=== PATIENT | female | born 1935 | race Caucasian/White ===

== ENCOUNTER → 2017-01-02 | Outpatient (REF) | payer OTHER | LOC: M LAB REF 12:14 | PROVIDERS: ATTEND Nurse Practitioner Family | DX: R35.0 Frequency of micturition (principal) ==

== ENCOUNTER → 2017-02-18 | Outpatient (CLI) | payer MEDICARE ==
--- NOTE | 2017-02-18 15:32 | REPMRS ---
Patient History The patient states she had a clinical breast exam in 02/2017. Patient is postmenopausal. Family history of colorectal cancer in 2 paternal aunts at age 50 or over, prostate cancer in brother at age 50 or over, breast cancer in paternal uncle at age 50 or over, and colorectal cancer in paternal uncle at age 50 or over. Taking estrogen for 5 years 6 months. Digital Woman Screen Mammo: February 18, 2017 - Exam #: [id number] Bilateral CC and MLO view(s) were taken. Technologist: Karen Frederick, Technologist Prior study comparison: December 27, 2015, digital woman screen mammo performed at [facility]. August 22, 2014, digital woman screen mammo performed at [facility]. FINDINGS: There are scattered fibroglandular densities. There has been no change in the appearance of the mammogram from the prior studies. There is a mild amount of residual fibroglandular tissue which is fairly symmetric. There is no interval development of dominant mass, architectural distortion, or clustered microcalcification suggestive of malignancy. ASSESSMENT: BI-RADS/ACR category 1 mammogram. Negative. Recommendation Routine screening mammogram in 1 year (for women over age 40). This mammogram was interpreted with the aid of an FDA-approved computer-aided dectection system. Electronically Signed By: Keaton Dee MD 02/18/17 [id number]
== END ==
LOC: M WHC 14:40
PROVIDERS: ATTEND Nurse Practitioner Family
DX: Z12.31 Encounter for screening mammogram for malignant neoplasm of breast (principal); Z78.0 Asymptomatic menopausal state; Z92.23 Personal history of estrogen therapy
CPT/HCPCS: G0202; G0463

== ENCOUNTER → 2017-05-04 | Outpatient (REF) | payer MEDICARE | LOC: M SFHCWAGY 17:07 | PROVIDERS: ATTEND Nurse Practitioner Women's Health | DX: N89.8 Other specified noninflammatory disorders of vagina (principal) | CPT/HCPCS: 87070; 87077; 87186; 87210; G0463 ==

== ENCOUNTER 2017-07-08 17:47 | Emergency (ER) | payer MEDICARE ==
[~2017-07-08] VITALS: Ht 147.3 cm; Wt 56.8 kg
[2017-07-08] MEDS ORDERED: HYDR25TAB (18:18)
[2017-07-08] MEDS ORDERED: MYRB50TA (18:18)
[2017-07-08] MEDS ORDERED: POTA20TA (18:18)
[2017-07-08] MEDS ORDERED: IBUP-1114 PO (18:18)
[2017-07-08] MEDS ORDERED: LEVO88TA3 (18:18)
[2017-07-08] MEDS ORDERED: ENAL10TA2 (18:18)
[2017-07-08] MEDS ORDERED: PRAV20TA2 (18:18)
[2017-07-08 19:55] LABS: MEAN CORPUSCULAR HEMOGLOBIN 29.5 pg (27.0-33.0); MEAN CORPUSCULAR HGB CONC 32.1 g/dl (32.0-36.5); MEAN CORPUSCULAR VOLUME 92.2 fl (80.0-96.0); PLATELET COUNT, AUTOMATED 269 10^3/uL (150-450); RED CELL DISTRIBUTION WIDTH 12.6 % (11.5-14.5); WHITE BLOOD COUNT 6.9 10^3/uL (4.0-10.0)
[2017-07-08 20:21] LABS: ANION GAP 7 MEQ/L (8-16); BLOOD UREA NITROGEN 32 MG/DL (7-18); CARBON DIOXIDE LEVEL 27 MEQ/L (21-32); CHLORIDE LEVEL 109 MEQ/L (98-107); CREATININE FOR GFR 0.72 MG/DL (0.55-1.02); GLOMERULAR FILTRATION RATE > 60.0 (>32); GLUCOSE, FASTING 83 MG/DL (83-110); POTASSIUM SERUM 3.9 MEQ/L (3.5-5.1); SODIUM LEVEL 143 MEQ/L (136-145)
--- NOTE | 2017-07-08 20:48 | ECGEPIP ---
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
[2017-07-08] MEDS ORDERED: VASO20TA11 PO (21:04)
[2017-07-08] MEDS ORDERED: VASO10TA8 PO (21:11)
[2017-07-08 21:31] VITALS: BP 138/73
== END 2017-07-08 21:37 | disposition home or self-care (01) ==
LOC: M ED 17:47
DX: I10 Essential (primary) hypertension (principal); T44.5X5A Adverse effect of predominantly beta-adrenoreceptor agonists, initial encounter; Z79.899 Other long term (current) drug therapy; Z88.8 Allergy status to other drugs, medicaments and biological substances; Z88.2 Allergy status to sulfonamides

== ENCOUNTER → 2018-01-15 | Outpatient (REF) | payer MEDICARE | LOC: M SFHCWAGY 12:02 | DX: R30.0 Dysuria (principal) | CPT/HCPCS: 87186 ==

== ENCOUNTER → 2018-03-09 | Outpatient (CLI) | payer MEDICARE | LOC: M WHC 10:21 | DX: Z01.419 Encounter for gynecological examination (general) (routine) without abnormal findings (principal); Z12.31 Encounter for screening mammogram for malignant neoplasm of breast (principal); Z78.0 Asymptomatic menopausal state; Z80.0 Family history of malignant neoplasm of digestive organs; Z12.12 Encounter for screening for malignant neoplasm of rectum; Z98.890 Other specified postprocedural states | CPT/HCPCS: 77067 ==

== ENCOUNTER → 2018-07-15 | Outpatient (REF) | payer MEDICARE | LOC: M LAB REF 11:51 | DX: N39.0 Urinary tract infection, site not specified (principal) | CPT/HCPCS: 87186 ==

== ENCOUNTER → 2018-09-28 | Outpatient (REF) | payer MEDICARE ==
[~2018-09-28] MED LIST: ENAL10TA2; HYDR25TAB; IBUP-1114 PO; KLOR20TA42; LEVO88TA3; MYRB50TA; PRAV20TA2; VASO10TA8 PO; VASO20TA11 PO
== END ==
LOC: M LAB REF 17:27
PROVIDERS: ATTEND Nurse Practitioner Adult Health
DX: R10.30 Lower abdominal pain, unspecified (principal)

== ENCOUNTER → 2018-11-19 | Outpatient (REF) | payer MEDICARE ==
[2018-11-19 17:03] LABS: APPEARANCE, URINE CLOUDY (CLEAR); BACTERIA, URINE AUTO 1+ (NEGATIVE); BILIRUBIN, URINE AUTO NEGATIVE (NEGATIVE); BLOOD, URINE BLOOD 2+ (NEGATIVE); COLOR, URINE YELLOW (YELLOW); GLUCOSE, URINE (UA) AUTO NEGATIVE (NEGATIVE); KETONE, URINE AUTO NEGATIVE (NEGATIVE); LEUKOCYTE ESTERASE, URINE AUTO 3+ (NEGATIVE); NITRITE, URINE AUTO NEGATIVE (NEGATIVE); PROTEIN, URINE AUTO NEGATIVE (NEGATIVE); RBC, URINE AUTO 10 /HPF (0-3); SPECIFIC GRAVITY URINE AUTO 1.017 (1.002-1.035); SQUAMOUS EPITHELIAL CELL UR AU 0 /HPF (0-6); UROBILINOGEN, URINE AUTO 0.2 mg/dL (0.0-2.0); WBC, URINE AUTO TNTC /HPF (0-3)
== END ==
LOC: M LAB REF 16:42
PROVIDERS: ATTEND Physician Assistant
DX: N39.0 Urinary tract infection, site not specified (principal)

== ENCOUNTER → 2019-01-31 | Outpatient (REF) | payer MEDICARE ==
[2019-01-31 17:41] LABS: APPEARANCE, URINE HAZY (CLEAR); BACTERIA, URINE AUTO 1+ (NEGATIVE); BILIRUBIN, URINE AUTO NEGATIVE (NEGATIVE); BLOOD, URINE BLOOD 2+ (NEGATIVE); COLOR, URINE YELLOW (YELLOW); GLUCOSE, URINE (UA) AUTO NEGATIVE (NEGATIVE); KETONE, URINE AUTO NEGATIVE (NEGATIVE); LEUKOCYTE ESTERASE, URINE AUTO 3+ (NEGATIVE); NITRITE, URINE AUTO POSITIVE (NEGATIVE); PROTEIN, URINE AUTO NEGATIVE (NEGATIVE); RBC, URINE AUTO 10 /HPF (0-3); SPECIFIC GRAVITY URINE AUTO 1.012 (1.002-1.035); SQUAMOUS EPITHELIAL CELL UR AU 0 /HPF (0-6); UROBILINOGEN, URINE AUTO 0.2 mg/dL (0.0-2.0); WBC, URINE AUTO 30 /HPF (0-3)
== END ==
LOC: M LAB REF 16:08
PROVIDERS: ATTEND Obstetrics & Gynecology
DX: N30.90 Cystitis, unspecified without hematuria (principal)

== ENCOUNTER 2019-02-22 21:31 | Emergency (ER) | payer MEDICARE ==
[~2019-02-22] VITALS: Ht 147.3 cm; Wt 120.0 kg
[2019-02-22] MEDS ORDERED: NS 1,000 ML IV SCH (21:48)
[2019-02-22 22:30] LABS: BASO % 0.4 % (0.0-1.0); EOS # 0.1 10^3/uL (0.0-0.50); EOS % 1.5 % (0.0-3.0); HEMATOCRIT 37.2 % (36.0-47.0); LYMPH % 13.7 % (24.0-44.0); MEAN CORPUSCULAR HEMOGLOBIN 30.4 pg (27.0-33.0); MEAN CORPUSCULAR HGB CONC 32.3 g/dl (32.0-36.5); MEAN CORPUSCULAR VOLUME 94.2 fl (80.0-96.0); MONO # 0.5 10^3/uL (0.0-0.8); MONO % 6.8 % (0.0-5.0); NEUTROPHILS # 5.7 10^3/uL (1.8-7.7); NEUTROPHILS % 77.1 % (36.0-66.0); PLATELET COUNT, AUTOMATED 227 10^3/uL (150-450); RED BLOOD COUNT 3.95 10^6/uL (4.00-5.40); WHITE BLOOD COUNT 7.4 10^3/uL (4.0-10.0)
[2019-02-22 22:41] LABS: INR 1.13; PROTHROMBIN TIME 14.2 SECONDS (11.8-14.0)
[2019-02-22 22:42] LABS: PARTIAL THROMBOPLASTIN TIME 30.6 SECONDS (25.0-38.4)
[2019-02-22 22:50] LABS: ALBUMIN 3.5 GM/DL (3.2-5.2); BILIRUBIN,DIRECT 0.1 MG/DL (0.0-0.2); BILIRUBIN,TOTAL 0.4 MG/DL (0.2-1.0); TOTAL PROTEIN 6.8 GM/DL (6.4-8.2)
[2019-02-22] MEDS ORDERED: LIDOCAINE 2% 5ML JELLY UROJET TOP ONE (23:15)
[2019-02-22] MEDS ORDERED: LevoFLOXacin 500 MG TABLET PO ONE (23:45)
[2019-02-23] MEDS ORDERED: ISOVUE-370 76% 100ML VIAL (Q9967) As Ordered ONE (00:41)
--- NOTE | 2019-02-23 03:26 | REPVR ---
EXAM: CT Abdomen and Pelvis With Contrast EXAM DATE/TIME: 02/23/2019 12:51 AM CLINICAL HISTORY: 83 years old, female; Abdominal pain; Localized; Right lower quadrant (rlq) TECHNIQUE: Imaging protocol: Axial computed tomography images of the abdomen and pelvis with intravenous contrast. Coronal and sagittal reformatted images were created and reviewed. Radiation optimization: All CT scans at this facility use at least one of these dose optimization techniques: automated exposure control; mA and/or kV adjustment per patient size (includes targeted exams where dose is matched to clinical indication); or iterative reconstruction. Contrast material: ISOVUE 370; Contrast volume: 100 ml; Contrast route: IV; COMPARISON: No relevant prior studies available. FINDINGS: Lungs: There is mild dependent atelectasis in both lower lobes. Heart: No cardiomegaly. No pericardial effusion. There are coronary artery calcifications. Mediastinum: There is a small sliding hiatal hernia. Diaphragm: There is mild eventration of the right hemidiaphragm. Liver: There are 2.3 cm and 3.2 cm lesions that demonstrate peripheral nodular enhancement in the posterior superior segment 7 of the right hepatic lobe, which are most compatible with hemangiomas. There is a 1 cm cyst in the superior lateral segment 2 of the left hepatic lobe. There is a 3.3 cm cyst in the anterior superior segment 8 of the right hepatic lobe. The contour of the liver is smooth. The liver is enlarged and measures 17.5 cm in craniocaudal dimension at the level of the right midclavicular line. Gallbladder and bile ducts: No calcified gallstones are seen. No gallbladder wall thickening, pericholecystic fluid, or pericholecystic inflammatory changes are identified. No dilation of the intrahepatic or common bile duct is noted. Pancreas: The main pancreatic duct is dilated and measures up to 5 mm in diameter. However, no pancreatic mass, lesion, or pseudocyst is noted. There no pancreatic calcifications. No inflammatory fat stranding is noted around the pancreas. Spleen: Normal. No splenomegaly. Adrenals: Normal. No mass. Kidneys and ureters: The kidneys are normal in appearance. No renal lesion is identified. No calculi are seen in the kidneys or ureters. There is no hydronephrosis or hydroureter. There are no wedge-shaped areas of low attenuation in the kidneys to suggest pyelonephritis. There is no renal abscess or perinephric fluid collection. Stomach and bowel: There is colonic diverticulosis without evidence for diverticulitis. There is no evidence for a bowel obstruction, colitis, pneumatosis intestinalis, intussusception, volvulus, or perforated viscus. Appendix: The appendix is not identified and may have been removed. No dilated blind ending tubular structure, inflammatory fat stranding, or fluid is noted in the expected location of the appendix. Intraperitoneal space: Unremarkable. No free air. No fluid collection. Vasculature: There are mild to moderate atherosclerotic calcifications. The abdominal aorta is patent, normal in caliber, and there is no dissection. The iliac arteries, common femoral arteries, renal arteries, celiac artery, superior mesenteric artery, and inferior mesenteric artery are patent. The renal veins, hepatic veins, portal veins, splenic vein, superior mesenteric vein, and inferior mesenteric vein are patent. Lymph nodes: Normal. No enlarged lymph nodes. Bladder: No calculi are noted in the bladder. There is no bladder wall thickening or mass. There is a diverticulum arising from the right posterolateral aspect of the urinary bladder. Reproductive: There has been a hysterectomy. No adnexal mass is noted. Bones/joints: The imaged bony structures are intact. There is no suspicious osteolytic or osteoblastic lesion. Incidental note is made of a small bone island in the right acetabulum. There are degenerative changes in the lower thoracic spine and lumbar spine. There is an S-shaped scoliosis of the thoracolumbar spine. There are degenerative changes of both hip joints and the pubic symphysis. Soft tissues: There is a large fat-containing periumbilical hernia, and the hernia sac measures approximately 6.4 cm in transverse dimension and defect in the anterior abdominal wall measures approximately 2.6 cm in transverse dimension. IMPRESSION: 1. No acute findings in the abdomen or pelvis. No evidence for appendicitis. 2. Large fat-containing periumbilical hernia. 3. Colonic diverticulosis without evidence for diverticulitis. 4. Hepatomegaly. Electronically signed by: Don Banerjee On 02/23/2019 03:26:11 AM
[2019-02-23] MEDS ORDERED: CIPR-249 PO (03:42)
[2019-02-23 04:00] VITALS: BP 147/64
--- NOTE | 2019-02-23 06:44 | REP ---
Portable chest, 10:15 p.m., single AP view with the patient upright: Comparison is 03/23/2014. Cardiac size appears enlarged, however, some of this could be artifactual from portable positioning. Lung dorado are clear. The almas, mediastinum, and skeletal structures are unremarkable. There is scoliosis in the lumbar spine convex right, unchanged. Impression: Possible cardiomegaly versus artifact from portable positioning. Otherwise, negative portable chest. Electronically Signed by Keaton Martinez MD 02/23/2019 06:35 A
--- NOTE | 2019-02-23 09:10 | ECGEPIP ---
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
== END 2019-02-23 04:01 | disposition home or self-care (01) ==
LOC: M ED 21:31
DX: N39.0 Urinary tract infection, site not specified (principal); R10.31 Right lower quadrant pain; I10 Essential (primary) hypertension; E78.9 Disorder of lipoprotein metabolism, unspecified; E07.9 Disorder of thyroid, unspecified; Z87.440 Personal history of urinary (tract) infections; Z88.2 Allergy status to sulfonamides; Z88.5 Allergy status to narcotic agent; Z88.8 Allergy status to other drugs, medicaments and biological substances; Z79.899 Other long term (current) drug therapy
CPT/HCPCS: 36415; 71045; 74177; 80047; 80076; 81001; 83605; 83690; 85025; 85610; 85730; 87040; 87088; 87186; 93005; 93041; 96360; 96361; 99285; Q9967

== ENCOUNTER → 2019-03-07 | Outpatient (REF) | payer MEDICARE ==
[~2019-03-07] MED LIST changes: +CIPR-249 PO
[2019-03-07 17:27] LABS: APPEARANCE, URINE CLEAR (CLEAR); BACTERIA, URINE AUTO 1+ (NEGATIVE); BILIRUBIN, URINE AUTO NEGATIVE (NEGATIVE); BLOOD, URINE BLOOD NEGATIVE (NEGATIVE); COLOR, URINE STRAW (YELLOW); GLUCOSE, URINE (UA) AUTO NEGATIVE (NEGATIVE); KETONE, URINE AUTO NEGATIVE (NEGATIVE); LEUKOCYTE ESTERASE, URINE AUTO 1+ (NEGATIVE); NITRITE, URINE AUTO NEGATIVE (NEGATIVE); PROTEIN, URINE AUTO NEGATIVE (NEGATIVE); RBC, URINE AUTO 1 /HPF (0-3); SQUAMOUS EPITHELIAL CELL UR AU 0 /HPF (0-6); UROBILINOGEN, URINE AUTO 0.2 mg/dL (0.0-2.0); WBC, URINE AUTO 4 /HPF (0-3)
== END ==
LOC: M SMT 16:47
PROVIDERS: ATTEND Nurse Practitioner Women's Health
DX: N39.0 Urinary tract infection, site not specified (principal)

== ENCOUNTER → 2019-04-04 | Outpatient (REF) | payer MEDICARE ==
[2019-04-04 17:54] LABS: BACTERIA, URINE AUTO NEGATIVE (NEGATIVE); RBC, URINE AUTO 1 /HPF (0-3); SQUAMOUS EPITHELIAL CELL UR AU 0 /HPF (0-6); WBC, URINE AUTO 35 /HPF (0-3)
== END ==
LOC: M SMT 16:52
PROVIDERS: ATTEND Specialist
DX: N39.0 Urinary tract infection, site not specified (principal)

== ENCOUNTER → 2019-04-21 | Outpatient (REF) | payer MEDICARE | LOC: M LAB REF 16:39 | PROVIDERS: ATTEND Nurse Practitioner Adult Health | DX: R19.7 Diarrhea, unspecified (principal) ==

== ENCOUNTER → 2019-05-05 | Outpatient (REF) | payer MEDICARE ==
[2019-05-05 14:06] LABS: BACTERIA, URINE AUTO NEGATIVE (NEGATIVE); RBC, URINE AUTO 5 /HPF (0-3); SQUAMOUS EPITHELIAL CELL UR AU 0 /HPF (0-6); TRANSITIONAL EPITHELIAL AUTO <1 /HPF; WBC, URINE AUTO 40 /HPF (0-3)
== END ==
LOC: M SMT 12:43
PROVIDERS: ATTEND Specialist
DX: N39.0 Urinary tract infection, site not specified (principal)

== ENCOUNTER → 2019-08-05 | Outpatient (REF) | payer MEDICARE ==
[2019-08-05 18:29] LABS: APPEARANCE, URINE CLEAR (CLEAR); BACTERIA, URINE AUTO NEGATIVE (NEGATIVE); BILIRUBIN, URINE AUTO NEGATIVE (NEGATIVE); BLOOD, URINE BLOOD 2+ (NEGATIVE); COLOR, URINE YELLOW (YELLOW); GLUCOSE, URINE (UA) AUTO NEGATIVE (NEGATIVE); KETONE, URINE AUTO NEGATIVE (NEGATIVE); LEUKOCYTE ESTERASE, URINE AUTO 3+ (NEGATIVE); MUCUS, URINE SMALL (NEGATIVE); NITRITE, URINE AUTO POSITIVE (NEGATIVE); PROTEIN, URINE AUTO NEGATIVE (NEGATIVE); RBC, URINE AUTO 5 /HPF (0-3); SPECIFIC GRAVITY URINE AUTO 1.016 (1.002-1.035); SQUAMOUS EPITHELIAL CELL UR AU 0 /HPF (0-6); UROBILINOGEN, URINE AUTO 0.2 mg/dL (0.0-2.0); WBC, URINE AUTO 173 /HPF (0-3)
== END ==
LOC: M SMT 17:27
PROVIDERS: ATTEND Specialist
DX: N39.0 Urinary tract infection, site not specified (principal)

== ENCOUNTER → 2019-11-29 | Outpatient (REF) | payer MEDICARE ==
[2019-12-02 14:06] LABS: B. HENSELAE IgG (CAT SCRATCH) Negative titer (Neg:<1:320); B. HENSELAE IgM (CAT SCRATCH) Negative titer (Neg:<1:100); B. QUINTANA IgG (CAT SCRATCH) Negative titer (Neg:<1:320); B. QUINTANA IgM (CAT SCRATCH) Negative titer (Neg:<1:100)
== END ==
LOC: M LAB REF 17:24
PROVIDERS: ATTEND Nurse Practitioner Family
DX: R50.9 Fever, unspecified (principal); W55.03XA Scratched by cat, initial encounter; Y92.89 Other specified places as the place of occurrence of the external cause; Y93.89 Activity, other specified; Y99.8 Other external cause status

== ENCOUNTER → 2019-12-12 | Outpatient (REF) | payer MEDICARE ==
[~2019-12-12] MED LIST changes: +ATIV1TAB10 PO; +LISI-538; +METH-855
[2019-12-12 17:47] LABS: BACTERIA, URINE AUTO 1+ (NEGATIVE); RBC, URINE AUTO 18 /HPF (0-3); SQUAMOUS EPITHELIAL CELL UR AU 2 /HPF (0-6); WBC, URINE AUTO TNTC /HPF (0-3)
== END ==
LOC: M SMT 16:37
PROVIDERS: ATTEND Nurse Practitioner Family
DX: N39.0 Urinary tract infection, site not specified (principal)

== ENCOUNTER 2019-12-19 18:28 | Emergency (ER) | payer MEDICARE ==
[~2019-12-19] VITALS: Ht 149.9 cm; Wt 52.3 kg
[~2019-12-19 18:28] MED LIST changes: -ATIV1TAB10 PO; -HYDR25TAB; +HYDR25TAB PO; -KLOR20TA42; +KLOR20TA42 PO; -LEVO88TA3; +LEVO88TA3 PO; -LISI-538; -METH-855; -PRAV20TA2; +PRAV20TA2 PO
[2019-12-19] MEDS ORDERED: LISI-538 PO (18:40)
[2019-12-19] MEDS ORDERED: METH-855 PO (18:47)
[2019-12-19 19:07] LABS: BASO % 0.4 % (0.0-1.0); EOS # 0.2 10^3/uL (0.0-0.5); EOS % 2.1 % (0.0-3.0); HEMOGLOBIN 13.3 g/dl (12.0-15.5); LYMPH # 2.3 10^3/uL (1.5-5.0); LYMPH % 31.3 % (24.0-44.0); MEAN CORPUSCULAR HGB CONC 32.4 g/dl (32.0-36.5); MEAN CORPUSCULAR VOLUME 92.3 fl (80.0-96.0); MONO # 0.6 10^3/uL (0.0-0.8); MONO % 7.6 % (0.0-5.0); NEUTROPHILS # 4.2 10^3/uL (1.5-8.5); NEUTROPHILS % 58.2 % (36.0-66.0); PLATELET COUNT, AUTOMATED 272 10^3/uL (150-450); RED BLOOD COUNT 4.44 10^6/uL (4.00-5.40); WHITE BLOOD COUNT 7.3 10^3/uL (4.0-10.0)
--- NOTE | 2019-12-19 19:15 | REPVR ---
PROCEDURE INFORMATION: Exam: CT Head Without Contrast Exam date and time: 12/19/2019 7:00 PM Age: 84 years old Clinical indication: Pain; Headache; Additional info: CVA - nursing interventions must not delay CT TECHNIQUE: Imaging protocol: Computed tomography of the head without contrast. Radiation optimization: All CT scans at this facility use at least one of these dose optimization techniques: automated exposure control; mA and/or kV adjustment per patient size (includes targeted exams where dose is matched to clinical indication); or iterative reconstruction. Other technique: STROKE PROTOCOL was implemented. COMPARISON: No relevant prior studies available. FINDINGS: Brain: Decreased attenuation of the supratentorial white matter is likely secondary to chronic microvascular ischemia. No acute intracranial hemorrhage. Ventricles: Ventricular and subarachnoid spaces are age appropriate. Bones/joints: Unremarkable. No acute fracture. Sinuses: Mild paranasal sinus disease. Mastoid air cells: Visualized mastoid air cells are well aerated. Soft tissues: Unremarkable. Vasculature: Intracranial vascular calcification. IMPRESSION: No acute intracranial abnormality. ASSESSMENT: ASPECTS ([place] Stroke Program Early CT Score) is 10. Electronically signed by: Boubacar Alvarez On 12/19/2019 19:15:32 PM
[2019-12-19 19:20] LABS: INR 1.12; PROTHROMBIN TIME 14.1 SECONDS (11.8-14.0)
[2019-12-19 19:21] LABS: PARTIAL THROMBOPLASTIN TIME 31.9 SECONDS (25.0-38.4)
[2019-12-19] MEDS ORDERED: LORazepam 0.5 MG TAB PO STA (19:29)
[2019-12-19] MEDS ORDERED: ACETAMINOPHEN TAB 650MG DOSE (2X325MG) PO ONE (19:30)
[2019-12-19 19:41] LABS: BLOOD UREA NITROGEN 26 MG/DL (7-18); CALCIUM LEVEL 10.1 MG/DL (8.8-10.2); CARBON DIOXIDE LEVEL 28 MEQ/L (21-32); CHLORIDE LEVEL 105 MEQ/L (98-107); CK-MB VALUE MASS 3.2 NG/ML (<3.6); CPK CREATINE PHOSPHOKINASE 115 U/L (26-192); CREATININE FOR GFR 0.79 MG/DL (0.55-1.30); GLOMERULAR FILTRATION RATE > 60.0 (>32); GLUCOSE, FASTING 106 MG/DL (70-100); MB/CK RELATIVE INDEX 2.78 (< OR =4); POTASSIUM SERUM 4.2 MEQ/L (3.5-5.1); SODIUM LEVEL 138 MEQ/L (136-145); THYROID STIMULATING HORMONE 0.717 uIU/ML (0.358-3.740); TROPONIN I < 0.02 NG/ML (< 0.10)
[2019-12-19] MEDS ORDERED: ATIV1TAB10 PO (20:25)
[2019-12-19 20:33] VITALS: BP 163/81
--- NOTE | 2019-12-20 08:22 | REP ---
Sitting AP chest x-ray: Single view. History: CVA. Comparison chest x-ray: February 22, 2019. Findings: The lungs are symmetrically aerated and free of infiltrate. Pleural angles are sharp. Cardiomediastinal silhouette unchanged. The aorta is calcific and tortuous. Pulmonary vasculature is not increased. Monitoring electrodes are seen. There are degenerative changes in the left shoulder and to some degree in the thoracic spine. Impression: No active disease. Electronically Signed by Carmelo Padilla MD 12/20/2019 08:13 A
== END 2019-12-19 21:03 | disposition home or self-care (01) ==
LOC: M ED 18:28 → EDBD 18:28 → M ED 21:03
DX: F43.0 Acute stress reaction (principal); I10 Essential (primary) hypertension; E03.9 Hypothyroidism, unspecified; Z88.2 Allergy status to sulfonamides; Z88.8 Allergy status to other drugs, medicaments and biological substances; Z79.899 Other long term (current) drug therapy

== ENCOUNTER 2019-12-28 18:21 | Observation (INO) | payer MEDICARE ==
[~2019-12-28] VITALS: Ht 147.3 cm; Wt 50.9 kg
[~2019-12-28 18:21] MED LIST changes: +ATIV1TAB10 PO; +LISI-538 PO; +METH-855 PO
[2019-12-28] MEDS ORDERED: NS 500 ML IV ONE (18:45)
[2019-12-28 19:00] LABS: BASO % 0.4 % (0.0-1.0); EOS # 0.1 10^3/uL (0.0-0.5); EOS % 1.5 % (0.0-3.0); HEMATOCRIT 35.8 % (36.0-47.0); HEMOGLOBIN 12.1 g/dl (12.0-15.5); LYMPH # 2.3 10^3/uL (1.5-5.0); LYMPH % 33.6 % (24.0-44.0); MEAN CORPUSCULAR HGB CONC 33.8 g/dl (32.0-36.5); MEAN CORPUSCULAR VOLUME 88.6 fl (80.0-96.0); MONO # 0.6 10^3/uL (0.0-0.8); MONO % 9.5 % (0.0-5.0); NEUTROPHILS # 3.7 10^3/uL (1.5-8.5); NEUTROPHILS % 54.6 % (36.0-66.0); PLATELET COUNT, AUTOMATED 263 10^3/uL (150-450); RED BLOOD COUNT 4.04 10^6/uL (4.00-5.40); WHITE BLOOD COUNT 6.7 10^3/uL (4.0-10.0)
--- NOTE | 2019-12-28 19:03 | REPVR ---
PROCEDURE INFORMATION: Exam: CT Head Without Contrast Exam date and time: 12/28/2019 6:54 PM Age: 84 years old Clinical indication: Dizziness; Additional info: CVA - nursing interventions must not delay CT TECHNIQUE: Imaging protocol: Computed tomography of the head without contrast. Radiation optimization: All CT scans at this facility use at least one of these dose optimization techniques: automated exposure control; mA and/or kV adjustment per patient size (includes targeted exams where dose is matched to clinical indication); or iterative reconstruction. COMPARISON: CT Head without contrast 12/19/2019 6:57 PM FINDINGS: Brain: Normal. No hemorrhage. Unremarkable white matter. No mass effect. Ventricles: Normal. No ventriculomegaly. Bones/joints: Unremarkable. No acute fracture. Sinuses: Visualized sinuses are unremarkable. No fluid levels. Mastoid air cells: Visualized mastoid air cells are well aerated. Orbits: Bilateral cataract surgery. Soft tissues: Unremarkable. IMPRESSION: No acute intracranial abnormality. Electronically signed by: Osbaldo Mendoza On 12/28/2019 19:03:26 PM
[2019-12-28 19:16] LABS: INR 1.1; PROTHROMBIN TIME 13.9 SECONDS (11.8-14.0)
[2019-12-28 19:17] LABS: PARTIAL THROMBOPLASTIN TIME 30.8 SECONDS (25.0-38.4)
[2019-12-28 19:27] LABS: BLOOD UREA NITROGEN 16 MG/DL (7-18); CALCIUM LEVEL 9.3 MG/DL (8.8-10.2); CARBON DIOXIDE LEVEL 26 MEQ/L (21-32); CHLORIDE LEVEL 98 MEQ/L (98-107); CK-MB VALUE MASS 2.7 NG/ML (<3.6); CPK CREATINE PHOSPHOKINASE 100 U/L (26-192); CREATININE FOR GFR 0.66 MG/DL (0.55-1.30); GLOMERULAR FILTRATION RATE > 60.0 (>32); GLUCOSE, FASTING 89 MG/DL (70-100); SODIUM LEVEL 132 MEQ/L (136-145); TROPONIN I < 0.02 NG/ML (< 0.10)
[2019-12-28] MEDS ORDERED: cefTRIAXone SOD 1 GM in D5W MINI-BAG PLUS 50 ML IV ONE (20:45)
--- NOTE | 2019-12-28 21:18 | ECGEPIP ---
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
--- NOTE | 2019-12-28 21:43 | HPEPDOC ---
[facility] Medical History & Physical Date of Admission December 28, 2019 Date of Service: December 28, 2019 Primary Care Physician: Jr Car Collins Attending Physician: Esme Samuel MD History and Physical CHIEF COMPLAINT: Weakness HISTORY OF PRESENT ILLNESS: Patient is an 84-year-old female with PMH of HTN, DJD, stress incontinence, hypothyroidism, hypokalemia, HLD, recurrent UTI, hx of MRSA who presented to [facility] with chief complaint of increased weakness. According to the patient, she has been increasingly stressed, developing anxiety and depression over the past several months with the current situation from Covid 19 and caring for her terminally ill brother. She is also had other family stressors. She presented on 12/18/2021 are emergency room and diagnosed with a stress reaction at that time. She was prescribed Ativan, total of 6 pills to take PRN. She had a lso been feeling hopeless, crying often and "depressed" and was started on zoloft 12/21/2019 by her primary care provider. On 12/25/2019 the patient states after having taken Zoloft and Ativan together that she experienced increased weakness, memory loss, increased lightheadedness, dizzy. She called her doctor who recommended stopping the Ativan at that time and cutting her Zoloft dose half. Over the next 2 days the patient felt okay but today at a proximally 1013 the morning her symptoms came back at rest. She became increasingly panicked and felt like she was having "a stroke". Her had had a stroke and this created more anxiety and panic attack. The patient denied chest pain, shortness of breath, nausea, vomiting, diarrhea, appetite changes, dysuria. She admitted to also having a "heavy feeling in my legs". She drinks plenty of water during the day due to history of recurrent urinary tract infections, at least 1500 mL. Due to her abnormal feelings and symptoms this morning the patient came to the emergency room for further evaluation. In the emergency room vital signs showed BP 155-186/77-86 with other VS stable. Patient was awake, alert oriented- improved from earlier presentation. CT head neg. UA+ but patient was asymptomatic. Sodium slightly low at 132. She was given IVFS, ceftriaxone in ER. WBC wnl. Patient was admitted for AMS likely 2/2 to polypharmacy and UTI, generalized weakness. REVIEW OF SYSTEMS: CONSTITUTIONAL: Denies unexplained weight gain or weight loss, loss of appetite, fever, night sweats EYES: Denies eye drainage, eye pain, visual changes, dry/irritated eye EARS, NOSE, MOUTH, THROAT: Denies difficulty hearing, ringing in ears, mouth sores, loose teeth, sore throat, facial numbness or pain NECK: Denies swollen glands CARDIOVASCULAR: Denies irregular heartbeat, racing heart, chest pains, swelling of feet or legs, pain in legs with walking RESPIRATORY: Denies shortness of breath, night sweats, wheezing, sputum production, oxygen at home, coughing up blood, cough lasting > 1 month GASTROINTESTINAL: Denies abdominal pain, constipation, bloody stool, diarrhea, heartburn, nausea, vomiting GENITOURINARY: Denies painful urination, bloody urine, impotence MUSCULOSKELETAL: Denies muscle pain, leg swelling INTEGUMENTARY: Denies rash, itching, new skin lesion, change in existing skin lesion, hair loss or increase, breast changes. NEUROLOGICAL: Denies headaches, numbness or tingling PSYCHIATRIC: Denies recurrent bad thoughts, mood swings, hallucinations PAST MEDICAL HISTORY: 1. HTN 2. DJD 3. Stress incontinence 4. Hypothyroidism 5. Hypokalemia 6. HLD 7. Recurrent UTI, hx of MRSA 8. Osteoporosis 9. Chronic hip pain PAST SURGICAL HISTORY: 1. Colonoscopy x 3 2. Tonsillectomy 3. Adenectomy 4. Total hysterectomy 5. Appendectomy 6. D&C x3 7. Bladder repair FAMILY HISTORY: Father: HTN, stroke, bladder cancer. at 68 y/o Mother: HTN, prediabetes, atrial fibrillation. at 78 y/o Siblings: sister- kidney cancer. Alive. Brother's siblings- bladder cancer SOCIAL HISTORY: Remote hx of smoking for 3 years, 1 1/2 PPD, quit 56 years ago. Drinks alcohol socially, denies drug. She currently lives with her brother, she is her primary caregiver. PCP- Christi Shannon in [place]. She is a full code ALLERGIES: Please see below. HOME MEDICATIONS: Please see below. PHYSICAL EXAMINATION: CONSTITUTIONAL: No acute distress, resting comfortably, AAO x 3 EYES: PERRLA, EOM intact, corrective lenses in place HENT, MOUTH: Normocephalic, atraumatic, moist mucous membranes NECK: SUPPLE, no JVD, no lymphadenopathy, no carotid bruit CV: Regular rate and rhythm, S1S2 normal, no murmurs/rubs/gallops RESPIRATORY: Clear to auscultation bilaterally, no rales/rhonchi/wheezes GI: BS positive in 4 quadrants, soft, nontender, nondistended, no rebound or guarding, no organomegaly : Deferred MUSCULOSKELETAL: Normal ROM. No cyanosis, clubbing, swelling, joint deformity, extremity edema INTEGUMENTARY: Intact, no rashes, no lesions, no erythema NEUROLOGIC: Cranial Nerves II-XII are intact, no focal deficits PSYCHIATRIC: Mood and affect are normal LABORATORY DATA: Please see below IMAGING: CT head: No acute intracranial abnormalities ASSESSMENT: Patient is an 84 y/o F admitted for altered mental status likely multifactorial to polypharmacy and UTI, generalized weakness, uncontrolled hypertension. PLAN: 1. Altered mental status likely multifactorial to polypharmacy and UTI. Currently AAO x 3, CT head neg. Removing offending medications of ativan and zoloft from home med list, as she does not tolerate these together or individually. Starting IV ceftriaxone, f/u UCx. Monitor for changes overnight. 2. UTI, recurrent. No known chronic colonization, follows with o/p urology. F/u UCx, ceftriaxone, AM labs. 3. Hypertension, uncontrolled. Last two ER visits, systolic BP 180-200. BP im proves to <150/90 when rests so at this time will not add another agent. If goes up again, consider adding agent. 4. Generalized weakness likely 2/2 to UTI and polypharmacy. C/w treatment above, PT/OT. 5. Anxiety/depression. Currently stable but admits that these have both worsened since taking care of terminally ill brother, multiple life stressors. She was started on zoloft 25 mg initially on 12/20 and later decreased to 12.5 mg daily. As symptoms occurred with this med, stopping today. Can discuss other options with PCP after discharge. She denies SI/HI. 6. Hypokalemia likely 2/2 to diuretic. C/w potassium supplement BID. 7. Hypothyroidism. F/u TSH, c/w home med. 8. HLD. C/w statin. 9. DJD. Tylenol PRN. 10. DVT px. Lovenox. DISPOSITION: Admitted under observation status. Plan is discharge home when medically improved. Vital Signs Vital Signs Date Time Temp Pulse Resp B/P (MAP) Pulse Ox O2 Delivery O2 Flow Rate FiO2 12/28/19 20:21 97.6 12/28/19 20:15 156/78 (104) 12/28/19 20:06 63 100 Room Air Laboratory Data Labs 24H Laboratory Tests 2 12/28/19 18:44: Immature Granulocyte % (Auto) 0.4, Neutrophils (%) (Auto) 54.6, Lymphocytes (%) (Auto) 33.6, Monocytes (%) (Auto) 9.5H, Eosinophils (%) (Auto) 1.5, Basophils (%) (Auto) 0.4, Neutrophils # (Auto) 3.7, Lymphocytes # (Auto) 2.3, Monocytes # (Auto) 0.6, Eosinophils # (Auto) 0.1, Basophils # (Auto) 0.0, Nucleated Red Blood Cells % (auto) 0.0, Prothrombin Time 13.9, Prothromb Time International Ratio 1.10, Activated Partial Thromboplast Time 30.8, Urine Color COLORLESS, Urine Appearance CLEAR, Urine pH 8.0, Urine Specific Barto 1.003, Urine Protein NEGATIVE, Urine Glucose (UA) NEGATIVE, Urine Ketones NEGATIVE, Urine Blood 1+H, Urine Nitrite NEGATIVE, Urine Bilirubin NEGATIVE, Urine Urobilinogen 0.2, Urine Leukocyte Esterase 3+H, Urine WBC (Auto) 37H, Urine RBC (Auto) 3, Urine Hyaline Casts (Auto) 0, Urine Bacteria (Auto) NEGATIVE, Urine Squamous Epithelial Cells 0, Urine Sperm (Auto) , Anion Gap 8, Glomerular Filtration Rate > 60.0, Calcium Level 9.3, Total Creatine Kinase 100, Creatine Kinase MB 2.7, Creatine Kinase MB Relative Index 2.70, Troponin I < 0.02, Thyroid Stimulating Hormone (TSH) 1.380 CBC/BMP Laboratory Tests 12/28/19 18:44 Microbiology Microbiology 12/28/19 Urine Culture, Received Pending Home Medications Scheduled Acetaminophen (Acetaminophen) 500 Mg Tablet, 1,000 MG PO QHS Bifidobacterium Infantis (Align) 4 Mg Capsule, 4 MG PO DAILY Calcium Carbonate/Vitamin D3 (Calcium 600-Vit D3 800 Tablet) 1 Each Tablet, 1 T AB PO BID Carboxymethylcellulose Sodium (Refresh Tears) 15 Ml Drops, 1 DROP OU TID Estradiol (Estrace) 42.5 Gm Cream.appl, 1 DOSE PV 3XW MON/WED/FRI Hydrochlorothiazide (Hydrochlorothiazide) 25 Mg Tab, 25 MG PO DAILY Levothyroxine Sodium (Levothyroxine Sodium) 88 Mcg Tab, 88 MCG PO QAM Lisinopril (Lisinopril) 20 Mg Tablet, 20 MG PO BID Methenamine Hippurate (Methenamine Hippurate) 1 Gm Tablet, 1 GM PO Q2D Multivitamin (Multivitamins) 1 Each Tablet, 1 TAB PO DAILY Potassium Chloride (Klor-Con M20) 20 Meq Tabcr, 20 MEQ PO BID Pravastatin Sodium (Pravastatin Sodium) 20 Mg Tab, 20 MG PO QHS Sertraline HCl (Sertraline HCl) 50 Mg Tablet, 25 MG PO QHS Allergies Coded Allergies: Sulfa (Sulfonamide Antibiotics) (Verified Allergy, Intermediate, HIVES, 12/28/19) alendronate sodium (Verified Adverse Reaction, Mild, BODY PAIN , 12/28/19) meperidine (Verified Adverse Reaction, Mild, VOMITING , 12/28/19) levofloxacin (Verified Adverse Reaction, Unknown, CRAMPS IN HANDS, 12/28/19) A-FIB/CHADSVASC A-FIB History Current/History of A-Fib/PAF?: No Current PO Anticoag Therapy: No Age/Risk Factor Scoring CHADSVASC: CHADSVASC Response (Comments) Value Age Risk Factor Age >/= 75 years old 2 Gender Risk Factor Female 1 Hx of CHF No 0 Hx of HTN Yes 1 Hx of Stroke/TIA/or VTE No 0 Hx of Diabetes No 0 Hx of Vascular Disease No 0 Total 4 Treatment Treatment ordered: Other (enoxaparin) Other anticoagulant ordered: enoxaparin Esme Samuel MD December 28, 2019 21:43
[2019-12-28] MEDS ORDERED: ACETAMINOPHEN TAB 650MG DOSE (2X325MG) PO PRN (21:45)
[2019-12-28] MEDS ORDERED: ACET-683 PO (21:51)
[2019-12-28] MEDS ORDERED: SERT50TA29 PO (21:51)
[2019-12-28] MEDS ORDERED: ALIG4CAP PO (21:51)
[2019-12-28] MEDS ORDERED: CALC1TAB29 PO (21:51)
[2019-12-28] MEDS ORDERED: MULTTAB61 PO (21:51)
[2019-12-28] MEDS ORDERED: ESTR1CRE PV (21:51)
[2019-12-28] MEDS ORDERED: REFR0.5D8 OU (21:51)
[2019-12-28 23:53] VITALS: BP 154/84
[2019-12-29] MEDS: PRAVASTATIN 20 MG TAB PO SCH ×2 (00:16→20:25)
[2019-12-29] MEDS: POTASSIUM CHLORIDE 10 MEQ SR TABLET PO SCH ×3 (00:16→20:25)
[2019-12-29] MEDS: lisinopriL 20 MG TAB PO SCH ×3 (00:16→20:25)
[2019-12-29] MEDS: ACETAMINOPHEN TAB 650MG DOSE (2X325MG) PO PRN ×2 (00:17→08:16)
[2019-12-29] MEDS: LEVOTHYROXINE 88MCG TABLET (0.088 MG) PO SCH (05:29)
[2019-12-29 06:00] VITALS: BP 141/74
[2019-12-29 06:21] LABS: HEMATOCRIT 34.3 % (36.0-47.0); HEMOGLOBIN 11.4 g/dl (12.0-15.5); MEAN CORPUSCULAR HEMOGLOBIN 29.9 pg (27.0-33.0); MEAN CORPUSCULAR HGB CONC 33.2 g/dl (32.0-36.5); PLATELET COUNT, AUTOMATED 265 10^3/uL (150-450); RED BLOOD COUNT 3.81 10^6/uL (4.00-5.40); WHITE BLOOD COUNT 7.4 10^3/uL (4.0-10.0)
[2019-12-29 06:50] LABS: ALBUMIN 3.1 GM/DL (3.2-5.2); ALT/SGPT 11 U/L (12-78); BILIRUBIN,TOTAL 0.3 MG/DL (0.2-1.0); BLOOD UREA NITROGEN 15 MG/DL (7-18); CALCIUM LEVEL 8.5 MG/DL (8.8-10.2); CARBON DIOXIDE LEVEL 25 MEQ/L (21-32); CHLORIDE LEVEL 99 MEQ/L (98-107); CREATININE FOR GFR 0.64 MG/DL (0.55-1.30); GLOMERULAR FILTRATION RATE > 60.0 (>32); GLUCOSE, FASTING 92 MG/DL (70-100); POTASSIUM SERUM 4.3 MEQ/L (3.5-5.1); SODIUM LEVEL 132 MEQ/L (136-145); TOTAL PROTEIN 5.9 GM/DL (6.4-8.2)
[2019-12-29] MEDS: MULTIVITAMINS/MINERALS THERAP 1 TAB PO SCH (08:17)
[2019-12-29] MEDS: hydroCHLOROthiazide 25 MG TAB PO SCH (08:17)
[2019-12-29] MEDS: ENOXAPARIN 40MG/0.4ML SYRINGE (J1650 PER 10MG) SC SCH (08:17)
--- NOTE | 2019-12-29 08:26 | REP ---
PORTABLE CHEST X-RAY: Sitting AP view. HISTORY: CVA. Preliminary report preliminary report is provided at the time of the exam by Dr. Castillo. Comparison study December 19, 2019. FINDINGS: The lungs are symmetrically aerated and clear. Monitoring electrodes are seen. The aorta is somewhat tortuous. Pulmonary vasculature is not increased. No significant bony abnormality. IMPRESSION: No acute disease. Electronically Signed by Carmelo Padilla MD 12/29/2019 08:32 A
[2019-12-29] MEDS ORDERED: cefTRIAXone SOD 1 GM in D5W MINI-BAG PLUS 50 ML IV SCH (09:00)
[2019-12-29] MEDS ORDERED: LACTOBACILLUS ACIDOPHILUS CAP (BACID) PO SCH (09:00)
[2019-12-29] MEDS ORDERED: KEFL500C17 PO (09:58)
--- NOTE | 2019-12-29 10:19 | DSES ---
DATE OF ADMISSION: 12/28/2019 DATE OF DISCHARGE: PRINCIPAL DIAGNOSIS: Stress reaction. SECONDARY DIAGNOSIS: Possible cystitis. HISTORY: The patient was admitted last night with generalized weakness. For details, see history and physical from admission. HOSPITAL COURSE: The patient was admitted to a medical bed. It looks like she was having a stress reaction. She has had several of these in the past. She was admitted for presumed urinary tract infection. She had no fever, nor any leukocytosis. Her urinalysis was positive for leukocytes, negative for bacteria, and culture is pending. Today, she has passed physical therapy and should be discharged. On exam today, she is afebrile. Blood pressure of 126/70. Her lungs are clear. Heart regular rhythm. Abdomen soft and nontender. No costovertebral angle (CVA) tenderness. She looks depressed and poorly motivated. LABS: White count 7.4, hemoglobin 11.4 and platelets 265. Sodium 132, potassium 4.3, BUN 15, creatinine 0.86, glucose 92. Albumin a little low at 3.1. DISPOSITION: I think she can be safely discharged home. She has passed her home safety evaluation. Apparently, there are some social factors involved that Patient and Family Services (PFS) will need to attend to. Nursing staff tells me that the patient has a DO NOT RESUSCITATE/DO NOT INTUBATE status, but the paperwork that is provided is just a health care proxy and there is no medical orders for life-sustaining treatment (MOLST) form, so I did provide the patient with a MOLST form that she can review with her daughter and this can be finalized at her followup primary care visit. The patient does not need hospitalization and probably could have had this all treated as an outpatient. She will be discharged home. Activity as tolerated. Continue previous diet. Followup with her primary care provider next week. Her medicines on discharge will be unchanged from admission. - Tylenol as needed - Align 4 mg daily - calcium with vitamin D - Estrace cream Thursday, Thursday, Thursday - hydrochlorothiazide 25 mg daily - levothyroxine 88 mcg daily - lisinopril 20 mg twice a day - methenamine 1 gram every 2 days - multivitamin - potassium chloride 20 mEq daily - pravastatin 20 mg daily - Sertraline 25 mg daily - Keflex 500 mg twice a day for 5 days (pending results of urine culture, she can followup with her primary care provider and I suggested she call her PCP tomorrow. Her urine culture should be back and antibiotic choice can be modified or discontinued if the culture is negative). The patient's daughter has an out of hospital DO NOT RESUSCITATE and health care proxy forms, but does not have a MOLST form so I did give them an actual MOLST form to review and would encourage her primary care provider to complete this
[2019-12-29 14:00] VITALS: BP 140/70
[2019-12-29] MEDS ORDERED: POLYVINYL ALCOHOL OPHTH SOLN 15 ML(LIQUITEARS) OU PRN (14:45)
[2019-12-29 22:00] VITALS: BP 113/63
[2019-12-30] MEDS: ACETAMINOPHEN TAB 650MG DOSE (2X325MG) PO PRN (05:49)
[2019-12-30] MEDS: LEVOTHYROXINE 88MCG TABLET (0.088 MG) PO SCH (05:49)
[2019-12-30 06:00] VITALS: BP 95/61
[2019-12-30 06:11] LABS: HEMATOCRIT 35.6 % (36.0-47.0); HEMOGLOBIN 11.7 g/dl (12.0-15.5); MEAN CORPUSCULAR HEMOGLOBIN 29.8 pg (27.0-33.0); MEAN CORPUSCULAR HGB CONC 32.9 g/dl (32.0-36.5); MEAN CORPUSCULAR VOLUME 90.8 fl (80.0-96.0); PLATELET COUNT, AUTOMATED 263 10^3/uL (150-450); RED BLOOD COUNT 3.92 10^6/uL (4.00-5.40); WHITE BLOOD COUNT 7.5 10^3/uL (4.0-10.0)
[2019-12-30 06:35] LABS: ALBUMIN 3.2 GM/DL (3.2-5.2); ALT/SGPT 13 U/L (12-78); BILIRUBIN,TOTAL 0.3 MG/DL (0.2-1.0); BLOOD UREA NITROGEN 15 MG/DL (7-18); CALCIUM LEVEL 8.9 MG/DL (8.8-10.2); CARBON DIOXIDE LEVEL 26 MEQ/L (21-32); CHLORIDE LEVEL 102 MEQ/L (98-107); CREATININE FOR GFR 0.78 MG/DL (0.55-1.30); GLOMERULAR FILTRATION RATE > 60.0 (>32); GLUCOSE, FASTING 88 MG/DL (70-100); POTASSIUM SERUM 4.5 MEQ/L (3.5-5.1); SODIUM LEVEL 134 MEQ/L (136-145); TOTAL PROTEIN 6.5 GM/DL (6.4-8.2)
[2019-12-30] MEDS: POTASSIUM CHLORIDE 10 MEQ SR TABLET PO SCH (09:26)
[2019-12-30] MEDS: MULTIVITAMINS/MINERALS THERAP 1 TAB PO SCH (09:26)
[2019-12-30] MEDS: ENOXAPARIN 40MG/0.4ML SYRINGE (J1650 PER 10MG) SC SCH (09:26)
[2019-12-30] MEDS: hydroCHLOROthiazide 25 MG TAB PO SCH (09:27)
[2019-12-30 09:28] VITALS: BP 112/62
[2019-12-30] MEDS: lisinopriL 20 MG TAB PO SCH (09:28)
--- NOTE | 2019-12-30 12:07 | IPN ---
DATE: 12/30/2019 I discharged Rody yesterday. Apparently, she did not go home. I was not made aware that she actually had chosen not to leave the hospital. So, I found her on rounds this morning. Her urine cultures returned negative. Her mental status is back to baseline. Nurses say she is up walking and feeling better. PHYSICAL EXAMINATION: Vital signs unremarkable. Exam unchanged from yesterday. LABORATORY DATA: Sodium is up to 134. CBC remains normal. White count remains normal. IMPRESSION: Patient is again stable for discharge. Discharge summary was dictated yesterday. The only change is I discontinued the Keflex. She does not need this as her culture was negative.
== END 2019-12-30 15:15 | disposition home or self-care (01) ==
LOC: EDBD 18:21 → M ED 18:21 → M ED INP 21:34 → ENRESERV 22:44 → M MSPAV 23:53
PROVIDERS: ADMIT Internal Medicine; ATTEND Family Medicine
DX: F43.0 Acute stress reaction (principal); R39.9 Unspecified symptoms and signs involving the genitourinary system; R53.1 Weakness; N39.3 Stress incontinence (female) (male); I10 Essential (primary) hypertension; E03.9 Hypothyroidism, unspecified; E87.6 Hypokalemia; E78.49 Other hyperlipidemia; M81.0 Age-related osteoporosis without current pathological fracture; Z79.899 Other long term (current) drug therapy; Z87.891 Personal history of nicotine dependence
CPT/HCPCS: 36415; 70450; 71045; 80048; 80053; 81001; 82550; 82553; 84443; 84484; 85025; 85027; 85610; 85730; 87086; 87641; 93005; 93041; 94760; 96361; 96365; 96366; 96372; 97116; 97161; 97165; 97535; 99285; G0378; J0696; J1650

== ENCOUNTER → 2020-01-12 | Outpatient (REF) | payer MEDICARE ==
[~2020-01-12] MED LIST changes: +ACET-683 PO; +ALIG4CAP PO; +CALC1TAB29 PO; +ESTR1CRE PV; +KEFL500C17 PO; +MULTTAB61 PO; +REFR0.5D8 OU; +SERT50TA29 PO
== END ==
LOC: M LAB REF 16:54
PROVIDERS: ATTEND Internal Medicine
DX: N39.0 Urinary tract infection, site not specified (principal)

== ENCOUNTER → 2020-01-24 | Outpatient (REF) | payer MEDICARE | LOC: M LAB REF 17:20 | PROVIDERS: ATTEND Internal Medicine | DX: N30.20 Other chronic cystitis without hematuria (principal) ==